=== PATIENT | female | born 1995 | race Caucasian/White ===

== ENCOUNTER 2017-01-23 23:12 | Emergency (ER) | payer SELFPAY ==
[~2017-01-23] VITALS: Ht 157.5 cm; Wt 156.4 kg
[~2017-01-23 23:12] MED LIST: ADVIL200 MG PO; ALEVE220 MG PO; AMOXICILLIN875 MG PO; BENTYL10 MG PO; FLAGYL500 MG PO; FOCALIN XR30 MG PO; INTUNIV3 MG PO; KEFLEX500 MG PO; MOTRIN800 MG PO; NAPROXEN500 MG PO; OXCARBAZEPINE300 MG PO; TRILEPTAL300 MG PO; ULTRAM50 MG PO; VYVANCE; ZOFRAN ODT8 MG PO
[2017-01-23 23:32] VITALS: BP 108/74
[2017-01-23] MEDS ORDERED: PROVENTIL HFA6.7 GM IH (23:49)
[2017-01-23] MEDS ORDERED: ZOFRAN4 MG PO (23:49)
== END 2017-01-24 | disposition home or self-care (01) ==
LOC: EME 23:12
DX: B34.9 Viral infection, unspecified (principal); R05 Cough; R11.2 Nausea with vomiting, unspecified
CPT/HCPCS: 99281; 99283

== ENCOUNTER 2017-03-09 16:37 | Emergency (ER) | payer OTHER ==
[~2017-03-09] VITALS: Ht 157.5 cm; Wt 153.9 kg
[~2017-03-09 16:37] MED LIST changes: +PROVENTIL HFA6.7 GM IH; +ZOFRAN4 MG PO
[2017-03-09] MEDS ORDERED: INDOCIN50 MG PO (18:41)
[2017-03-09] MEDS ORDERED: VALIUM5 MG PO (18:41)
[2017-03-09] MEDS ORDERED: ULTRACET1 TABLET PO (18:41)
[2017-03-09 19:05] VITALS: BP 132/95
== END 2017-03-09 19:06 | disposition home or self-care (01) ==
LOC: EME 16:37
DX: G57.01 Lesion of sciatic nerve, right lower limb (principal); S39.012A Strain of muscle, fascia and tendon of lower back, initial encounter; M54.31 Sciatica, right side; I10 Essential (primary) hypertension
CPT/HCPCS: 99281; 99283; J3010

== ENCOUNTER 2017-03-15 16:10 | Emergency (ER) | payer OTHER ==
[~2017-03-15] VITALS: Ht 157.5 cm; Wt 153.0 kg
[~2017-03-15 16:10] MED LIST changes: +INDOCIN50 MG PO; +ULTRACET1 TABLET PO; +VALIUM5 MG PO
[2017-03-15] MEDS ORDERED: FLEXERIL10 MG PO (17:14)
[2017-03-15] MEDS ORDERED: PREDNISONE10 MG PO (17:14)
[2017-03-15 17:35] VITALS: BP 152/81
== END 2017-03-15 17:35 | disposition home or self-care (01) ==
LOC: EME 16:10
DX: M54.5 Low back pain (principal); M62.838 Other muscle spasm
CPT/HCPCS: 99281; 99284; J1885

== ENCOUNTER 2017-03-26 17:59 | Inpatient (IN) | payer OTHER ==
[~2017-03-26] VITALS: Ht 157.5 cm; Wt 153.0 kg
[~2017-03-26 17:59] MED LIST changes: +FLEXERIL10 MG PO; +PREDNISONE10 MG PO
[2017-03-26 19:44] LABS: HEMATOCRIT 46.5 % (36.0-46.0); MCH 28.1 PG (29.0-34.0); MCHC 32.9 G/DL (30.0-36.0); MCV 85.3 FL (83-99); MEAN PLAT.VOLUME 9.9 uM^3 (9.5-12.4); PLATELET COUNT 251 K/uL (156-360); RBC DIS.WIDTH-CV 13.1 % (11.8-14.6); RBC DIS.WIDTH-SD 40.3 % (39-53); RED BLOOD COUNT 5.45 M/uL (3.80-5.20); WHITE BLOOD COUNT 14.2 K/uL (4.1-10.2)
[2017-03-26 20:00] LABS: CHLORIDE 104 mEq/L (99-109); SODIUM 139 mEq/L (136-147)
[2017-03-26 20:02] LABS: GLUCOSE 89 mg/dL (70-99)
[2017-03-26 20:04] LABS: ANION GAP 13 MEQ/L (2-14); TOTAL BILIRUBIN 0.5 mg/dL (0.0-1.0)
[2017-03-26 20:06] LABS: ALKALINE PHOSPHATASE 54 IU/L (3-129); GFR ESTIMATE (CALCULATED) > 59 mL/min/
[2017-03-26 20:07] LABS: UREA NITROGEN (BUN) 16 mg/dL (9-23)
[2017-03-26 20:09] LABS: LIPASE 33 U/L (1.0-51.0)
[2017-03-26 20:16] LABS: QUANTITATIVE HCG < 4.0 MIU/ML
[2017-03-26] MEDS ORDERED: ZANTAC150 MG PO (20:43)
[2017-03-26 22:10] LABS: D-DIMER ELISA 3.07 mg/L FEU (< 0.57)
[2017-03-27] MEDS ORDERED: FLONASE16 G1 BOTH NARES (00:12)
[2017-03-27 02:18] LABS: INTER. NORMALIZED RATIO 1.1; PROTHROMBIN TIME 10.9 (9.2-11.2)
[2017-03-27 04:29] VITALS: BP 131/81
[2017-03-27 08:24] VITALS: BP 114/65
[2017-03-27 09:33] LABS: HEMATOCRIT 40.4 % (36.0-46.0); MCH 28.4 PG (29.0-34.0); MCHC 32.7 G/DL (30.0-36.0); MCV 86.9 FL (83-99); MEAN PLAT.VOLUME 9.9 uM^3 (9.5-12.4); PLATELET COUNT 256 K/uL (156-360); RBC DIS.WIDTH-CV 13.3 % (11.8-14.6); RBC DIS.WIDTH-SD 41.8 % (39-53); RED BLOOD COUNT 4.65 M/uL (3.80-5.20); WHITE BLOOD COUNT 10.1 K/uL (4.1-10.2)
[2017-03-27 10:14] LABS: ADD MIUA? NO; BILIRUBIN NEGATIVE; BLOOD NEGATIVE; COLOR YELLOW ((YELLOW)); GLUCOSE (STRIP) NEGATIVE; KETONES NEGATIVE; LEUKOCYTES NEGATIVE; NITRITE NEGATIVE; PROTEIN (STRIP) NEGATIVE; UROBILINOGEN 0.2 MG/DL (0.2-1.0)
[2017-03-27 10:15] LABS: SPECIFIC GRAVITY 1.072 (1.000-1.030)
[2017-03-27 11:55] VITALS: BP 131/75
[2017-03-27 16:13] VITALS: BP 128/80
[2017-03-27 19:53] VITALS: BP 140/78
[2017-03-27 23:43] VITALS: BP 111/58
[2017-03-28 06:14] LABS: PROTHROMBIN TIME 10.5 (9.2-11.2); PTT 46.1 (25-32)
[2017-03-28 06:25] LABS: MCH 28.3 PG (29.0-34.0); MCHC 32.7 G/DL (30.0-36.0); MCV 86.5 FL (83-99); MEAN PLAT.VOLUME 9.4 uM^3 (9.5-12.4); PLATELET COUNT 298 K/uL (156-360); RBC DIS.WIDTH-CV 13.2 % (11.8-14.6); RBC DIS.WIDTH-SD 41.1 % (39-53); WHITE BLOOD COUNT 13.5 K/uL (4.1-10.2)
[2017-03-28 06:33] LABS: ANION GAP 9 MEQ/L (2-14); CHLORIDE 101 MEQ/L (99-109); GFR ESTIMATE (CALCULATED) > 59 mL/min/; GLUCOSE 100 mg/dL (70-99); POTASSIUM 4.1 MEQ/L (3.7-5.4); SAMPLE HEMOLYSIS CHECK 0; SAMPLE ICTERIC CHECK 0; SAMPLE LIPEMIA CHECK 0; SODIUM 133 MEQ/L (136-147); UREA NITROGEN (BUN) 14 mg/dL (9-23)
[2017-03-28 07:44] VITALS: BP 128/69
[2017-03-28 11:38] VITALS: BP 136/74
[2017-03-28 16:33] VITALS: BP 131/73
[2017-03-28 19:36] VITALS: BP 154/81
[2017-03-28 23:44] VITALS: BP 128/76
[2017-03-29 03:27] VITALS: BP 131/80
[2017-03-29 06:43] LABS: HEMATOCRIT 39.8 % (36.0-46.0); MCH 29.2 PG (29.0-34.0); MCHC 33.9 G/DL (30.0-36.0); MCV 86.1 FL (83-99); PLATELET COUNT 235 K/uL (156-360); RBC DIS.WIDTH-CV 13.2 % (11.8-14.6); RBC DIS.WIDTH-SD 40.4 % (39-53); RED BLOOD COUNT 4.62 M/uL (3.80-5.20); WHITE BLOOD COUNT 9.8 K/uL (4.1-10.2)
[2017-03-29 06:50] LABS: INTER. NORMALIZED RATIO 1.2; PROTHROMBIN TIME 12.5 (9.2-11.2)
[2017-03-29 07:05] LABS: ANION GAP 10 MEQ/L (2-14); CHLORIDE 104 MEQ/L (99-109); GFR ESTIMATE (CALCULATED) > 59 mL/min/; GLUCOSE 81 mg/dL (70-99); POTASSIUM 3.8 MEQ/L (3.7-5.4); SAMPLE HEMOLYSIS CHECK 0; SAMPLE ICTERIC CHECK 0; SAMPLE LIPEMIA CHECK 0; SODIUM 138 MEQ/L (136-147); UREA NITROGEN (BUN) 12 mg/dL (9-23)
[2017-03-29 07:28] VITALS: BP 129/84
[2017-03-29] MEDS ORDERED: LOVENOX150 MG/1 M SC (09:50)
[2017-03-29] MEDS ORDERED: COUMADIN7.5 MG PO (09:50)
[2017-03-29 11:08] VITALS: BP 125/86
[2017-04-01 19:04] LABS: ANTITHROMBIN III ACTIVITY+ 85 (80-120); DRVVT Mixing Study Interp Not Indicated (()); PROTEIN C FUNCTIONAL ACTIVITY+ 166 % (70-180); PTT-LA 74 sec (<=40); PTT-LA Reflex Has been added (()); Protein S, Free 26 % normal (50-147); dRVVT Screen 35 sec (<=45)
== END 2017-03-29 13:03 | disposition home or self-care (01) | DRG 176 ==
LOC: EME 17:59 → EDOF 03-27 02:42 → 5SOUTH 03-27 04:14
PROVIDERS: Hospitalist; Physician Assistant
DX: I26.99 Other pulmonary embolism without acute cor pulmonale (principal); D72.829 Elevated white blood cell count, unspecified; E66.01 Morbid (severe) obesity due to excess calories; Z68.44 Body mass index [BMI] 60.0-69.9, adult; K86.89 Other specified diseases of pancreas; K76.0 Fatty (change of) liver, not elsewhere classified; F17.210 Nicotine dependence, cigarettes, uncomplicated; F31.9 Bipolar disorder, unspecified; Z71.6 Tobacco abuse counseling; Z56.0 Unemployment, unspecified; Z82.49 Family history of ischemic heart disease and other diseases of the circulatory system
CPT/HCPCS: 71275; 74022; 80048; 80053; 81003; 81240 90; 83090 90; 83690; 84702; 85027; 85240 90; 85300 90; 85303 90; 85305 90; 85306 90; 85379; 85610; 85613 90; 85670 90; 85730; 85730 90; 86146 90; 86147 90; 93005; 93970; 99281; 99285; J1650; J7030

== ENCOUNTER 2017-12-29 16:28 | Emergency (ER) | payer OTHER ==
[~2017-12-29] VITALS: Ht 157.5 cm; Wt 156.2 kg
[~2017-12-29 16:28] MED LIST changes: +COUMADIN7.5 MG PO; +FLONASE16 G1 BOTH NARES; +LOVENOX150 MG/1 M SC; +ZANTAC150 MG PO
[2017-12-29] MEDS ORDERED: VENTOLIN HFA18 GM IH (20:02)
[2017-12-29 20:16] VITALS: BP 140/84
== END 2017-12-29 20:17 | disposition home or self-care (01) ==
LOC: EME 16:28
PROVIDERS: Physician Assistant Medical
DX: J06.9 Acute upper respiratory infection, unspecified (principal); I10 Essential (primary) hypertension; Z87.891 Personal history of nicotine dependence; F32.9 Major depressive disorder, single episode, unspecified; F43.10 Post-traumatic stress disorder, unspecified
CPT/HCPCS: 87502; 87651 90; 94640; 99281; 99284

== ENCOUNTER 2018-04-19 16:10 | Emergency (ER) | payer OTHER ==
[~2018-04-19] VITALS: Ht 157.5 cm; Wt 161.3 kg
[~2018-04-19 16:10] MED LIST changes: +VENTOLIN HFA18 GM IH
[2018-04-19 18:43] LABS: HEMATOCRIT 40.4 % (36.0-46.0); HEMOGLOBIN 13.7 G/DL (11.9-15.5); MCHC 33.9 G/DL (30.0-36.0); MCV 85.6 FL (83-99); PLATELET COUNT 241 K/uL (156-360); RBC DIS.WIDTH-SD 40.5 % (39-53); RED BLOOD COUNT 4.72 M/uL (3.80-5.20); WHITE BLOOD COUNT 8.5 K/uL (4.1-10.2)
[2018-04-19 18:54] LABS: CHLORIDE 107 mEq/L (99-109); POTASSIUM 4.5 mEq/L (3.7-5.4); SODIUM 141 mEq/L (136-147)
[2018-04-19 18:56] LABS: GLUCOSE 83 mg/dL (70-99)
[2018-04-19 19:00] LABS: CREATININE 0.9 mg/dL (0.6-1.3); GFR ESTIMATE (CALCULATED) > 59 mL/min/
[2018-04-19 19:01] LABS: UREA NITROGEN (BUN) 15 mg/dL (9-23)
[2018-04-19 19:13] LABS: QUANTITATIVE HCG < 4.0 MIU/ML
[2018-04-19] MEDS ORDERED: ELIQUIS5 MG PO (21:28)
[2018-04-19 21:59] VITALS: BP 125/72
== END 2018-04-19 21:59 | disposition home or self-care (01) ==
LOC: RME 16:10 → EME 16:10 → RME 21:59
PROVIDERS: Nurse Practitioner Family
DX: I82.491 Acute embolism and thrombosis of other specified deep vein of right lower extremity (principal); Z86.711 Personal history of pulmonary embolism; Z86.718 Personal history of other venous thrombosis and embolism; Z87.891 Personal history of nicotine dependence
CPT/HCPCS: 71275; 73630; 80048; 84702; 85027; 93971; 99281; 99285; J7120

== ENCOUNTER 2018-05-23 21:35 | Emergency (ER) | payer OTHER ==
[~2018-05-23] VITALS: Ht 157.5 cm; Wt 160.8 kg
[~2018-05-23 21:35] MED LIST changes: +ELIQUIS5 MG PO
[2018-05-23 22:01] LABS: HEMATOCRIT 43.4 % (36.0-46.0); HEMOGLOBIN 14.3 G/DL (11.9-15.5); MCH 28.6 PG (29.0-34.0); MCHC 32.9 G/DL (30.0-36.0); MCV 86.8 FL (83-99); PLATELET COUNT 241 K/uL (156-360); RBC DIS.WIDTH-CV 13.6 % (11.8-14.6); RBC DIS.WIDTH-SD 42.5 % (39-53); WHITE BLOOD COUNT 9.2 K/uL (4.1-10.2)
[2018-05-23 22:14] LABS: CHLORIDE 110 mEq/L (99-109); POTASSIUM 3.9 mEq/L (3.7-5.4); SODIUM 138 mEq/L (136-147)
[2018-05-23 22:16] LABS: GLUCOSE 106 mg/dL (70-99)
[2018-05-23 22:19] LABS: CREATININE 0.8 mg/dL (0.6-1.3); GFR ESTIMATE (CALCULATED) > 59 mL/min/
[2018-05-23 22:20] LABS: UREA NITROGEN (BUN) 10 mg/dL (9-23)
[2018-05-24 01:10] LABS: TROP-I INTERPRETATION NEGATIVE; TROPONIN-I < 0.01 ng/mL (0.0-0.30)
[2018-05-24 02:02] VITALS: BP 156/107
== END 2018-05-24 02:03 | disposition home or self-care (01) ==
LOC: EXP 21:35 → EME 21:35 → EXP 05-24 02:03
DX: R07.9 Chest pain, unspecified (principal); Z86.718 Personal history of other venous thrombosis and embolism; Z86.711 Personal history of pulmonary embolism; Z79.01 Long term (current) use of anticoagulants; J98.11 Atelectasis; Z87.891 Personal history of nicotine dependence
CPT/HCPCS: 71046; 71275; 80048; 84484; 85027; 93005; 99281; 99285; J7030